=== PATIENT | female | born 1960 | race Caucasian/White ===

== ENCOUNTER 2017-08-29 09:13 | Inpatient (IN) | payer OTHER ==
[2017-08-22 12:52] VITALS: BMI 20.7
--- NOTE | 2017-08-26 10:34 | HP ---
Admitting History and Physical - Primary Care Physician PCP: Brett Ontiveros - Admission Chief Complaint: right breast cancer History of Present Illness: Patient is a 56 yo female noted to have a right palpable mass in mammo and US () c/w 6.5 cm mass extending anteriorly into the lateral subareolar region. Right 12 and 9 retroareolar region core bxs were c/w poorly dif invasive ductal carcinoma. (12 oclock site ER weakly + and [place]- ,HER-2 3+, 9 oclock site ER+ [place]- ,HER-2 3+) MRI (02/2017 at [facility]) was c/w right extensive cancer at 12 and extending into the nipple and retroareolar area. Questionable right axillary LN was noted on MRI but PET/CT (03/04) showed no adenopathy. Patient underwent neoadjuvant chemo and finished July 16/2017. Repeat MRI done at [place] showed complete radiologic response. Patient is now presenting for mastectomy including removal of nipple/areolar complex with tissue cheese specialist placement. Patient is BRCA negative. History Source: Patient Limitations to Obtaining History: No Limitations - Past Medical History ...: No Psych: Yes: Depression - Past Surgical History Past Surgical History: Yes: None - Smoking History Smoking history: Never smoked Have you smoked in the past 12 months: No - Alcohol/Substance Use Hx Alcohol Use: (WINE OCCASIONALLY) Home Medications - Allergies Allergies/Adverse Reactions: Allergies Allergy/AdvReac Type Severity Reaction Status Date / Time No Known Allergies Allergy Verified 08/22/17 12:38 - Home Medications Home Medications: Ambulatory Orders Calcium Carbonate/Vitamin D3 [Calcium 600 + Vit D Tablet] 1 each PO DAILY Cholecalciferol (Vitamin D3) [Vitamin D3 -] 1,000 unit PO DAILY 08/22/17 Escitalopram Oxalate [Lexapro -] 15 mg PO DAILY 08/22/17 Loperamide HCl [Imodium -] 2 mg PO DAILY PRN 08/22/17 Family Disease History - Family Disease History Other Family History: maternal cousin-breast cancer at 47. maternal sec cousin- breast cancer Review of Systems - Review of Systems Psychiatric: reports: Anxiety Physical Examination Constitutional: Yes: Well Nourished, Calm ([place]) Breast(s): Yes: Other (Patient has B-cup breasts without any palpable masses or suspicious masses noted bilaterally.) Problem List - Problems (1) Breast cancer, right Code(s): C50.911 - MALIGNANT NEOPLASM OF UNSP SITE OF RIGHT FEMALE BREAST Qualifiers: Breast location: overlapping sites of breast Patient sex: female Assessment/Plan right mastectomy with snbx, poss andx, lymphoscintogram and tissue cheese specialist reconstruction
[2017-08-29] MEDS ORDERED: ROCURONIUM BROMIDE 50 MG/5 ML VIAL ONE (10:38)
[2017-08-29] MEDS ORDERED: ceFAZolin SODIUM 1 GM VIAL ONE (10:50)
[2017-08-29] MEDS ORDERED: LIDOCAINE HCL 2% JELLY (5 ML/TUBE) ONE (10:50)
[2017-08-29] MEDS ORDERED: ONDANSETRON 4 MG/2 ML VIAL ONE ×2 (10:50→14:24)
[2017-08-29] MEDS ORDERED: DEXAMETHASONE SOD PHOSPHATE 4 MG/1 ML VIAL ONE (10:50)
[2017-08-29] MEDS ORDERED: ePHEDrine SULFATE 50 MG/1 ML AMPULE ONE (10:59)
[2017-08-29] MEDS ORDERED: PROPOFOL 20 ML ONE ×2 (11:25→12:24)
[2017-08-29] MEDS ORDERED: ACETAMINOPHEN 325 MG TABLET (FP) PO PRN (12:45)
[2017-08-29] MEDS ORDERED: ZOLPIDEM TARTRATE 5 MG TABLET PO PRN (12:45)
[2017-08-29] MEDS ORDERED: NEOSTIGMINE METHYLSULFATE 0.5 MG/ML - 10 ML MDV ONE (13:18)
[2017-08-29] MEDS ORDERED: ACETAMINOPHEN 325 MG TABLET (FP) ONE (14:19)
[2017-08-29] MEDS: ACETAMINOPHEN 325 MG TABLET (FP) PO SCH ×2 (14:22→20:33)
[2017-08-29] MEDS: diazePAM 2 MG TABLET PO SCH ×2 (14:22→23:39)
[2017-08-29] MEDS: ONDANSETRON 4 MG/2 ML VIAL IVPUSH PRN (14:28)
[2017-08-29] MEDS ORDERED: oxyCODONE HCL 5 MG TABLET ONE (15:02)
[2017-08-29] MEDS ORDERED: traMADol HCL 50 MG TABLET ONE (15:03)
[2017-08-29] MEDS: traMADol HCL 50 MG TABLET PO PRN (15:09)
[2017-08-29] MEDS: oxyCODONE HCL 5 MG TABLET PO PRN ×2 (15:09→23:39)
[2017-08-29] MEDS: CEFAZOLIN 1 GM/D5W 1 GRAM/50 ML BAG IVPB SCH ×2 (16:18→20:30)
[2017-08-30] MEDS: traMADol HCL 50 MG TABLET PO PRN (01:10)
[2017-08-30] MEDS: CEFAZOLIN 1 GM/D5W 1 GRAM/50 ML BAG IVPB SCH ×4 (02:42→21:10)
[2017-08-30] MEDS: ACETAMINOPHEN 325 MG TABLET (FP) PO SCH ×5 (02:42→21:11)
[2017-08-30] MEDS: oxyCODONE HCL 5 MG TABLET PO PRN ×2 (02:46→07:07)
[2017-08-30] MEDS: diazePAM 2 MG TABLET PO SCH ×4 (07:08→23:03)
[2017-08-30] MEDS: DEXTROSE 5%-0.45% SALINE 1,000 ML IV SCH ×2 (08:24→14:31)
--- NOTE | 2017-08-30 08:46 | PN ---
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 right breast cancer History of Present Illness: patient is in bed didn't eat yet was slightly nauseous but better now, pain managed with po pain medication - Current Medication List Current Medications: Active Medications Acetaminophen (Tylenol -) 650 mg PO Q4H PRN PRN Reason: FEVER Acetaminophen (Tylenol -) 650 mg PO Q6H EVIN Stop: 09/01/17 14:59 Last Admin: 08/30/17 08:24 Dose: Not Given Diazepam (Valium -) 2 mg PO Q8H EVIN Last Admin: 08/30/17 08:24 Dose: Not Given Escitalopram Oxalate (Lexapro -) 15 mg PO DAILY [facility] Fentanyl (Sublimaze Injection -) 50 mcg IVPUSH [id number] PRN PRN Reason: PAIN Last Admin: 08/29/17 15:05 Dose: 25 mcg Heparin Sodium (Porcine) (Heparin -) 5,000 unit SQ BID@0800,2000 [facility] Cefazolin Sodium (Ancef 1 Gm Premixed Ivpb -) 1 gram in 50 mls @ 100 mls/hr IVPB Q6H-IV EVIN Stop: 09/05/17 14:59 Last Admin: 08/30/17 02:42 Dose: 100 mls/hr Dextrose/Sodium Chloride (D5-1/2ns -) 1,000 mls @ 100 mls/hr IV ASDIR EVIN Last Admin: 08/30/17 08:24 Dose: 100 mls/hr Ondansetron HCl (Zofran Injection) 4 mg IVPUSH Q6H PRN PRN Reason: NAUSEA AND/OR VOMITING Last Admin: 08/29/17 14:28 Dose: 4 mg Oxycodone HCl (Roxicodone -) 5 mg PO Q3H PRN PRN Reason: PAIN LEVEL 1-5 Last Admin: 08/29/17 23:39 Dose: 5 mg Oxycodone HCl (Roxicodone -) 10 mg PO Q3H PRN PRN Reason: PAIN LEVEL 6-10 Last Admin: 08/30/17 07:07 Dose: 10 mg Tramadol HCl (Ultram -) 50 mg PO Q6H PRN PRN Reason: PAIN Last Admin: 08/30/17 01:10 Dose: 50 mg Zolpidem Tartrate (Ambien -) 5 mg PO HS PRN PRN Reason: Insomnia - Objective Vital Signs: Vital Signs Temperature 98.6 F 08/30/17 04:00 Pulse Rate 86 08/30/17 04:00 Respiratory Rate 18 08/30/17 04:00 Blood Pressure 116/64 08/30/17 04:00 O2 Sat by Pulse Oximetry (%) 97 08/29/17 20:00 Constitutional: Yes: No Distress Breast(s): Yes: Other (Right flap viable minimal echymosis incision intact no drainage or signs of infection) Problem List - Problems (1) Breast cancer, right Code(s): C50.911 - MALIGNANT NEOPLASM OF UNSP SITE OF RIGHT FEMALE BREAST Qualifiers: Breast location: overlapping sites of breast Patient sex: female Assessment/Plan Continue oral pain meds Iv antibiotics OOB with assistance zofran prn nausea plan for discharge tomorrow
[2017-08-30 08:49] LABS: MCHC 34.2 g/dl (32.0-36.0); MEAN CELL VOLUME 96.7 fl (80-96); MEAN PLT VOLUME 8.9 fl (7.5-11.1); PLATELET COUNT 214 K/MM3 (134-434); RDW 12.5 % (11.6-15.6); WHITE BLOOD COUNT 7.2 K/mm3 (4.0-10.8)
[2017-08-30] MEDS: ESCITALOPRAM OXALATE 10 MG TABLET (FP) PO SCH (09:41)
[2017-08-30] MEDS: HEPARIN NA (PORCINE) 5,000 UNITS/ML 1ML VIAL SQ SCH ×3 (09:49→19:56)
[2017-08-30] MEDS ORDERED: ESCITALOPRAM OXALATE PO SCH (10:00)
[2017-08-30] MEDS: ONDANSETRON 4 MG/2 ML VIAL IVPUSH PRN (10:19)
--- NOTE | 2017-08-30 14:34 | PN ---
Progress Note (short form) - Note Progress Note: 56F POD1 s/p right breast mastectomy with reconstruction under GA-ETT with PECS 1 and 2 blocks for post operative pain control. Pt states that pain is well controlled, reports some improving nausea. No anesthetic complications. Will add pepcid bid.
--- NOTE | 2017-08-30 14:54 | DS ---
Physical Examination Vital Signs: Vital Signs Temperature 98 F 08/30/17 12:00 Pulse Rate 66 08/30/17 12:00 Respiratory Rate 18 08/30/17 12:00 Blood Pressure 122/70 08/30/17 12:00 O2 Sat by Pulse Oximetry (%) 97 08/30/17 09:00 Constitutional: Yes: No Distress Breast(s): Yes: Other (Right flap vaiable incision intact no signs of infection meche drain functioning) Labs: CBC, BMP 08/30/17 07:00 Discharge Summary Reason For Visit: RIGHT BREAST CANCER Condition: Good - Instructions Diet, Activity, Other Instructions: Post Operative Instructions - [facility] We hope your recovery will be uneventful. For those of you who have been given general anesthesia, there is a possibility you might have some lightheadedness and possibly nausea. It is important that each patient, especially those who have had general anesthesia, follow these instructions, please: 1. Do NOT operate a motor vehicle for 24 hours. 2. Do NOT drink any alcoholic beverages for 24 hours. 3. Do NOT take any sedatives, narcotics, or tranquilizers for 24 hours unless specifically ordered by your surgeon. 4. Do NOT undertake any strenuous exercise or outside activity for 24 hours unless specifically permitted by your surgeon. 5. Eat light foods that are easy to digest. If you have any problems with nausea and vomiting, lie down and rest. If it continues, call your surgeon. 6. Call your surgeon AT ONCE if you have problems with: a. Bleeding b. Urinating c. Excessive pain or drainage d. Numbness If any problems occur, call your physician first. If you cannot reach him/her, call the Ambulatory Surgery Unit at [phone], or the Emergency Room at [phone]. Follow up with Drs. Flowers / Braxton in 7 days. Medication: Vicodin E-S OR Percocet 1-2 tablets every 4-6 hrs as needed for 5-7 days. Wound Care: Keep wound dry and clean for 48 hours. You may remove the dressing after 48 hours and may shower. Keep steri-strips in place until follow-up appointment No heavy lifting or strenuous activities.Post Operative Instructions - [facility] We hope your recovery will be uneventful. For those of you who have been given general anesthesia, there is a possibility you might have some lightheadedness and possibly nausea. It is important that each patient, especially those who have had general anesthesia, follow these instructions, please: 1. Do NOT operate a motor vehicle for 24 hours. 2. Do NOT drink any alcoholic beverages for 24 hours. 3. Do NOT take any sedatives, narcotics, or tranquilizers for 24 hours unless specifically ordered by your surgeon. 4. Do NOT undertake any strenuous exercise or outside activity for 24 hours unless specifically permitted by your surgeon. 5. Eat light foods that are easy to digest. If you have any problems with nausea and vomiting, lie down and rest. If it continues, call your surgeon. 6. Call your surgeon AT ONCE if you have problems with: a. Bleeding b. Urinating c. Excessive pain or drainage d. Numbness If any problems occur, call your physician first. If you cannot reach him/her, call the Ambulatory Surgery Unit at [phone], or the Emergency Room at [phone]. Follow up with Drs. Flowers / Braxton in 7 days. Medication: Vicodin E-S OR Percocet 1-2 tablets every 4-6 hrs as needed for 5-7 days. Wound Care: Keep wound dry and clean for 48 hours. You may remove the dressing after 48 hours and may shower. Keep steri-strips in place until follow-up appointment No heavy lifting or strenuous activities. NO shower, empty and record MECHE output 2 times daily Referrals: Lester Flowers MD [Staff Physician] - Garrett Barajas MD [Staff Physician] - Disposition: HOME - Home Medications Comprehensive Discharge Medication List: Ambulatory Orders Calcium Carbonate/Vitamin D3 [Calcium 600 + Vit D Tablet] 1 each PO DAILY Cholecalciferol (Vitamin D3) [Vitamin D3 -] 1,000 unit PO DAILY 08/22/17 Escitalopram Oxalate [Lexapro -] 15 mg PO DAILY 08/22/17 Cefadroxil 500 mg PO BID #20 capsule 08/30/17 Tramadol HCl [Ultram] 50 mg PO TID PRN #14 tablet MDD 3 08/30/17
--- NOTE | 2017-08-30 17:55 | OP ---
DATE OF OPERATION: 08/29/2017 PREOPERATIVE DIAGNOSIS: Left breast multifocal breast cancer status post neoadjuvant chemotherapy. POSTOPERATIVE DIAGNOSIS: Left breast multifocal breast cancer status post neoadjuvant chemotherapy. PROCEDURE: Right breast total mastectomy with right axillary sentinel lymph node biopsy and afloat cryptologic manager reconstruction with Alloderm. ANESTHESIA: General endotracheal anesthesia. PRIMARY SURGEON: Abdulaziz Spaulding M.D. SUEDING MACHINE TENDER: Fazal Varghese PRIMARY SURGEON: For the afloat cryptologic manager reconstruction with Alloderm is Abdulaziz Barajas M.D. with his first crusher, Tiffanie Espinoza COMPLICATIONS: None. Briefly, the patient is a 56-year-old post menopausal nulliparous white female of [place] descent. She has a family history with her maternal cousin who had breast cancer at age 47 and a maternal second cousin had breast cancer at age 39. The patient felt a mass in the upper aspect of the right breast and eventually had a mammography ultrasound in January of 2017 showing a large central right breast mass measuring about 6.6 cm on ultrasound. There was a density in the right 12 and 9 o'clock positions, and both of these were biopsied under ultrasound guidance showing poorly differentiated invasive duct cancer which was ER positive, MS negative, and HER2 3+. The patient had an MRI showing extensive cancer in the right breast with the largest focus measuring about 3.6 cm, and there was involvement of the nipple of retroareolar region. There was an irregular lymph node seen in the right axillary region. She was seen down at [facility] and they performed a PET CT scan which was negative, and felt her nodes were not significant. She underwent neoadjuvant chemotherapy with AC-THP and finished that on July 16, 2017. On exam after neoadjuvant chemotherapy, she had a complete clinical response. An MRI after chemotherapy also showed a complete radiologic response. She was advised on undergoing a total mastectomy given the extent of the initial cancer which was multifocal. A sentinel lymph node biopsy is recommended. She is brought in for the procedure on August 29, 2017, and underwent the lymphoscintigraphy at [facility] and was brought to the [place] holding area. In the holding area, site verification was made, and informed consent was obtained. She was marked preoperatively by the plastic surgeon. The patient was brought into the operating room and laid on the OR table in the supine position. Venodynes are placed on the lower extremities prior to reduction. She received a gram of Ancef prior to Ancef. Then 3 mL of Lymphazurin blue are injected intradermally around the nipple areolar complex of the right breast. Massage was instituted. Again, she had general endotracheal anesthesia. Both breasts were sterilely prepped and draped in the usual fashion. The sentinel lymph node biopsy was first performed in the right axillary region. An incision was made just below the hair bearing area of the right axilla and dissection was undertaken, and blue lymphatics were seen coursing to 2 blue hot lymph nodes. The first sentinel node had a 10-second gamma count of 1696 and was blue. The second sentinel lymph node had a 10-second gamma count of 16,803 and was also blue. There were no other blue or hot nodes found, and background count after removal of these 2 nodes was 191. Both nodes were sent for frozen section and came back negative, though there was some fibrosis in the nodes consistent with chemotherapy effect. At this point the mastectomy is performed using a skin-sparing technique, removing the entire nipple areolar complex through an elliptical incision. Skin flaps were raised superiorly to the level of the clavicle, medially to the level of the sternum, laterally to the level of the latissimus, and inferiorly to the level of the inframammary fold. The breast was taken out off pectoralis major muscle from medial to lateral, completely removed intact. It was oriented with a long lateral, short superior suture and weighed to allow for appropriate cosmetic result. Specimen radiographs show removal of the 2 clips in question. The separate anterior margin was taken around the 12 o'clock region underneath the skin flap and sent separately as anterior margin with suture margin on biopsy cavity side. Hemostasis was achieved, and the wound was copiously irrigated with warm sterile saline. At this point, Dr. Barajas became the primary surgeon, and he performed an afloat cryptologic manager reconstruction in the subpectoral location using Alloderm. Two Lew drains were placed around the afloat cryptologic manager, brought through separate stab incisions on the lateral skin flaps and secured in place using 3-0 nylon suture. All wounds will be closed separately by plastic surgery. The patient did have a prepectoral block preoperatively for postoperative pain control. She will be extubated and recovered in the post-anesthesia care and will be admitted postoperatively for pain and wound management. All sponge, needle counts were correct at the end of the case and estimated blood loss was about 50 mL. The patient was hemodynamically stable throughout. ABDULAZIZ SPAULDING M.D. [id number]
[2017-08-30] MEDS: FAMOTIDINE 20 MG/50 ML IVPB 20 MG/50 ML MG IVPB SCH (21:10)
[2017-08-30] MEDS ORDERED: FAMOTIDINE IV 20 MG/12 ML VIAL IVPUSH SCH (22:00)
[2017-08-31] MEDS: ACETAMINOPHEN 325 MG TABLET (FP) PO SCH ×4 (03:22→14:21)
[2017-08-31] MEDS: CEFAZOLIN 1 GM/D5W 1 GRAM/50 ML BAG IVPB SCH ×2 (03:22→08:54)
[2017-08-31] MEDS: oxyCODONE HCL 5 MG TABLET PO PRN ×2 (07:10→14:20)
--- NOTE | 2017-08-31 08:13 | OP ---
DATE OF OPERATION: 08/29/2017 SURGEON: Abdulaziz Barajas MD OFFICE ADMIN SURGEON: SIMI Espinoza PREOPERATIVE DIAGNOSES: 1. Right acquired chest wall deformity status post right mastectomy. 2. Asymmetry of reconstructed chest wall. OPERATIVE PROCEDURE: Immediate right breast reconstruction with immediate insertion of tissue ground crew linesman and Alloderm soft tissue reconstruction. POSTOPERATIVE DIAGNOSIS: 1. Right acquired chest wall deformity status post right mastectomy. 2. Asymmetry of reconstructed chest wall. OPERATIVE INDICATION: The patient is a young woman who was brought to the operating room by Dr. Abdulaziz Flowers for right breast mastectomy. ANESTHESIA: General. CONSENT: The risks and benefits of surgical versus nonsurgical alternatives as well as the material complications of the procedure were described in great detail to the patient preoperatively on multiple occasions. She agreed to the planned procedure. OPERATIVE PROCEDURE IN DETAIL: The patient was taken to the operating room. After induction of general anesthesia in the supine position, both arms were extended and padded. Venodyne boots were placed. The entire chest wall, abdomen and flanks were prepped with ChloraPrep solution over their entire extent, and sterile drapes were placed in the usual fashion. Time out procedure was performed. At this point, the mastectomy scars were encountered and injected with 1% local lidocaine anesthesia with 1:100,000 epinephrine. The flanks and abdomen were also injected with 1% local lidocaine anesthesia and topical anesthesia was achieved for harvest of reconstructive tissue. At this point, attention was turned to the breasts. An incision was made down through the skin into the subcutaneous tissue, and a space for room for the reconstructive tissue was carried out over the right breast, and then symmetrically on the left breast. The capsule was softened, and attention was turned to the abdomen and flanks. The patient underwent excision of the right breast tissue. She underwent reconstruction with an AeroForm medium 600-mL air ground crew linesman and Alloderm of contour perforated large size. This is a unilateral reconstruction on the right. An incision was made using optical magnification of 1.5 power down through the skin into the subcutaneous tissue, through the subcutaneous tissue into the deep layers of the space. At this point, tissue was harvested for reconstruction, and then transferred to the back table. This tissue was then cleansed, prepared and readied for reconstruction. It was then transferred to the right breast and left breast independently. In the right breast it was positioned superiorly, medially and especially inferiorly, and in the left breast superiorly, medially and centrally in order to correct the significant deformity. When this was carried out, good shape and contour was seen in the sitting position. The patient tolerated this nicely. The wounds were closed with interrupted sutures, and the patient was dressed with Steri-Strips, Mastisol and a compressive dressing. The patient tolerated the procedure well. She was awakened and transferred to the recovery room in satisfactory condition. ABDULAZIZ BARAJAS M.D. FARHAT/[id number]
[2017-08-31] MEDS: diazePAM 2 MG TABLET PO SCH (08:52)
[2017-08-31] MEDS: HEPARIN NA (PORCINE) 5,000 UNITS/ML 1ML VIAL SQ SCH ×2 (08:53→09:00)
[2017-08-31] MEDS: FAMOTIDINE 20 MG/50 ML IVPB 20 MG/50 ML MG IVPB SCH (10:00)
[2017-08-31] MEDS: ESCITALOPRAM OXALATE 10 MG TABLET (FP) PO SCH (10:12)
--- NOTE | 2017-08-31 10:25 | PN ---
Progress Note, Physician Chief Complaint: Right multifocal breast cancer s/p neoadjuvant CTX History of Present Illness: The patient was diagnosed with a significant right multifocal breast cancer around January 2017 which was HER2+ and she underwent neoadjuvant AC-THP chemotherapy with a complete radiologic and clinical response. She then presented for a right breast total mastectomy with SLN biopsy and order schedule clerk reconstruction with alloderm on 08/29/17. - Current Medication List Current Medications: Active Medications Acetaminophen (Tylenol -) 650 mg PO Q4H PRN PRN Reason: FEVER Acetaminophen (Tylenol -) 650 mg PO Q6H [facility] Stop: 09/01/17 14:59 Last Admin: 08/31/17 08:53 Dose: 650 mg Diazepam (Valium -) 2 mg PO Q8H [facility] Last Admin: 08/31/17 08:52 Dose: Not Given Escitalopram Oxalate (Lexapro -) 15 mg PO DAILY [facility] Last Admin: 08/31/17 10:12 Dose: 15 mg Fentanyl (Sublimaze Injection -) 50 mcg IVPUSH [id number] PRN PRN Reason: PAIN Last Admin: 08/29/17 15:05 Dose: 25 mcg Heparin Sodium (Porcine) (Heparin -) 5,000 unit SQ BID@0800,2000 [facility] Last Admin: 08/31/17 09:00 Dose: Not Given Cefazolin Sodium (Ancef 1 Gm Premixed Ivpb -) 1 gram in 50 mls @ 100 mls/hr IVPB Q6H-IV [facility] Stop: 09/05/17 14:59 Last Admin: 08/31/17 08:54 Dose: 100 mls/hr Dextrose/Sodium Chloride (D5-1/2ns -) 1,000 mls @ 100 mls/hr IV ASDIR [facility] Last Admin: 08/30/17 14:31 Dose: Not Given Famotidine/Sodium Chloride (Pepcid 20 Mg Premixed Ivpb -) 20 mg in 50 mls @ 100 mls/hr IVPB BID [facility] Last Admin: 08/30/17 21:10 Dose: 100 mls/hr Ondansetron HCl (Zofran Injection) 4 mg IVPUSH Q6H PRN PRN Reason: NAUSEA AND/OR VOMITING Last Admin: 08/30/17 10:19 Dose: 4 mg Oxycodone HCl (Roxicodone -) 5 mg PO Q3H PRN PRN Reason: PAIN LEVEL 1-5 Last Admin: 08/31/17 07:10 Dose: 5 mg Oxycodone HCl (Roxicodone -) 10 mg PO Q3H PRN PRN Reason: PAIN LEVEL 6-10 Last Admin: 08/30/17 07:07 Dose: 10 mg Tramadol HCl (Ultram -) 50 mg PO Q6H PRN PRN Reason: PAIN Last Admin: 08/30/17 01:10 Dose: 50 mg Zolpidem Tartrate (Ambien -) 5 mg PO HS PRN PRN Reason: Insomnia - Objective Vital Signs: Vital Signs Temperature 98.0 F 08/31/17 06:00 Pulse Rate 84 08/31/17 06:00 Respiratory Rate 18 08/31/17 08:04 Blood Pressure 97/62 08/31/17 06:00 O2 Sat by Pulse Oximetry (%) 98 08/31/17 08:04 Constitutional: Yes: Well Nourished, No Distress Eyes: Yes: WNL HENT: Yes: Atraumatic, Normocephalic Neck: Yes: WNL Cardiovascular: Yes: Regular Rate and Rhythm Respiratory: Yes: Regular, CTA Bilaterally Gastrointestinal: Yes: Normal Bowel Sounds, Soft ...Rectal Exam: Yes: Deferred Genitourinary: Yes: WNL Breast(s): Yes: Other (Right mastectomy wound clean, dry, and intact. Drains functioning well.) Musculoskeletal: Yes: WNL Extremities: Yes: WNL Integumentary: Yes: WNL Wound/Incision: Yes: Clean/Dry, Well Approximated Neurological: Yes: Alert, Oriented ...Motor Strength: WNL Psychiatric: Yes: Other (Depression) Labs: CBC, BMP 08/30/17 07:00 Problem List - Problems (1) Breast cancer, right Assessment/Plan: The patient is doing well POD#2 with good pain control. Her wounds are clean, dry, and intact. Drains functioning well. Good pain control on percocet for pain. Dressing changed at bedside today. Stable for discharge today. HOme on percocet for pain and cefadroxil antibiotics. Follow up with Drs. Barajas and Kristie in 1 week. REBECCA drain teaching prior to discharge. NO heavy lifting or activity, No bath or shower until drains removed. Keep compressive bra on day/ night. Record drain outputs daily. Code(s): C50.911 - MALIGNANT NEOPLASM OF UNSP SITE OF RIGHT FEMALE BREAST Qualifiers: Breast location: overlapping sites of breast Estrogen receptor status: positive Patient sex: female Qualified Code(s): C50.811 - Malignant neoplasm of overlapping sites of right female breast; Z17.0 - Estrogen receptor positive status [ER+]; Z17.0 - Estrogen receptor positive status [ER+]
--- NOTE | 2017-08-31 10:40 | DS ---
Physical Examination Vital Signs: Vital Signs Temperature 98.0 F 08/31/17 06:00 Pulse Rate 84 08/31/17 06:00 Respiratory Rate 18 08/31/17 08:04 Blood Pressure 97/62 08/31/17 06:00 O2 Sat by Pulse Oximetry (%) 98 08/31/17 08:04 Constitutional: Yes: Well Nourished, No Distress, Calm Eyes: Yes: WNL HENT: Yes: Atraumatic, Normocephalic Neck: Yes: WNL Cardiovascular: Yes: Regular Rate and Rhythm Respiratory: Yes: Regular, CTA Bilaterally Gastrointestinal: Yes: Normal Bowel Sounds, Soft ...Rectal Exam: Yes: Deferred Renal/: Yes: WNL Breast(s): Yes: Other (Wounds clean, dry, and intact. Drains functioning well.) Musculoskeletal: Yes: WNL Extremities: Yes: WNL Integumentary: Yes: WNL Wound/Incision: Yes: Clean/Dry, Well Approximated Neurological: Yes: Alert, Oriented ...Motor Strength: WNL Psychiatric: Yes: Other (depressed) Labs: CBC, BMP 08/30/17 07:00 Discharge Summary Reason For Visit: RIGHT BREAST CANCER Right breast cancer s/p neoadjuvant chemotherapy and total mastectomy and sentinel lymph node biopsy with geologist petroleum reconstruction with alloderm. Procedures: Principal: Right breast total mastectomy with sentinel lymph node biopsy and geologist petroleum reconstruction with alloderm Hospital Course: The patient did well and had good pain control POD#2 s/p right breast total mastectomy with SLN biopsy and geologist petroleum reconstruction with alloderm with her wounds clean, dry, and intact. She was stable for discharge POD#2 and will be sent home on oral cefadroxil and percocet for pain. She is to follow up with drs. Barajas and Kristie in 1 week. Condition: Good - Instructions Diet, Activity, Other Instructions: Post Operative Instructions - [facility] We hope your recovery will be uneventful. For those of you who have been given general anesthesia, there is a possibility you might have some lightheadedness and possibly nausea. It is important that each patient, especially those who have had general anesthesia, follow these instructions, please: 1. Do NOT operate a motor vehicle for 24 hours. 2. Do NOT drink any alcoholic beverages for 24 hours. 3. Do NOT take any sedatives, narcotics, or tranquilizers for 24 hours unless specifically ordered by your surgeon. 4. Do NOT undertake any strenuous exercise or outside activity for 24 hours unless specifically permitted by your surgeon. 5. Eat light foods that are easy to digest. If you have any problems with nausea and vomiting, lie down and rest. If it continues, call your surgeon. 6. Call your surgeon AT ONCE if you have problems with: a. Bleeding b. Urinating c. Excessive pain or drainage d. Numbness If any problems occur, call your physician first. If you cannot reach him/her, call the Ambulatory Surgery Unit at [phone], or the Emergency Room at . Follow up with Drs. Flowers / Braxton in 7 days. Medication: Vicodin E-S OR Percocet 1-2 tablets every 4-6 hrs as needed for 5-7 days. Wound Care: Keep wound dry and clean for 48 hours. You may remove the dressing after 48 hours and may shower. Keep steri-strips in place until follow-up appointment No heavy lifting or strenuous activities.Post Operative Instructions - [facility] We hope your recovery will be uneventful. For those of you who have been given general anesthesia, there is a possibility you might have some lightheadedness and possibly nausea. It is important that each patient, especially those who have had general anesthesia, follow these instructions, please: 1. Do NOT operate a motor vehicle for 24 hours. 2. Do NOT drink any alcoholic beverages for 24 hours. 3. Do NOT take any sedatives, narcotics, or tranquilizers for 24 hours unless specifically ordered by your surgeon. 4. Do NOT undertake any strenuous exercise or outside activity for 24 hours unless specifically permitted by your surgeon. 5. Eat light foods that are easy to digest. If you have any problems with nausea and vomiting, lie down and rest. If it continues, call your surgeon. 6. Call your surgeon AT ONCE if you have problems with: a. Bleeding b. Urinating c. Excessive pain or drainage d. Numbness If any problems occur, call your physician first. If you cannot reach him/her, call the Ambulatory Surgery Unit at [phone], or the Emergency Room at [phone]. Follow up with Drs. Flowers / Braxton in 7 days. Medication: Vicodin E-S OR Percocet 1-2 tablets every 4-6 hrs as needed for 5-7 days. Wound Care: Keep wound dry and clean for 48 hours. You may remove the dressing after 48 hours and may shower. Keep steri-strips in place until follow-up appointment No heavy lifting or strenuous activities. NO shower, empty and record REBECCA output 2 times daily Referrals: Lester Flowers MD [Staff Physician] - Garrett Barajas MD [Staff Physician] - Disposition: HOME - Home Medications Comprehensive Discharge Medication List: Ambulatory Orders Calcium Carbonate/Vitamin D3 [Calcium 600 + Vit D Tablet] 1 each PO DAILY Cholecalciferol (Vitamin D3) [Vitamin D3 -] 1,000 unit PO DAILY 08/22/17 Escitalopram Oxalate [Lexapro -] 15 mg PO DAILY 08/22/17 Cefadroxil 500 mg PO BID #20 capsule 08/30/17 Tramadol HCl [Ultram] 50 mg PO TID PRN #14 tablet MDD 3 08/30/17
[2017-08-31 13:52] VITALS: BP 111/64; PULSE 96; TEMP 97.8
--- NOTE | 2017-09-04 10:12 | PATH ---
Surgical Pathology Report Patient Name: MELIZA JOSE Med. Rec. #: [id number] /Age/Gender: 1960 (Age: 56) / F Account: [id number] Location: [facility] MED-SURG Taken: 08/29/2017 Received: 08/29/2017 Reported: 09/04/2017 Physicians: Lester Flowers M.D. Specimen(s) Received A: RIGHT AXILLARY SENTINEL NODE B: RIGHT AXILLARY SENTINEL NODE C: RIGHT BREAST, MASTECTOMY D: RIGHT BREAST ANTERIOR MARGIN Clinical History None Provided Intraoperative Consult Diagnosis A. Right axillary sentinel node #1, frozen section: Lymph node showing area of dense fibrosis, suggestive of treatment effect. Cannot exclude focal residual metastatic carcinoma. Defer to permanent sections and immunohistochemistry. B. Right axillary sentinel node #2, frozen section: Lymph node showing focal area of dense fibrosis, suggestive of treatment effect. Cannot exclude focal residual metastatic carcinoma. Defer to permanent sections and immunohistochemistry. Emre Muir M.D., 08/29/17 Final Diagnosis A. Axilla, right, sentinel node #1, biopsy (FS): ONE BENIGN LYMPH NODE WITH HISTIOCYTIC PROLIFERATION SUGGESTIVE OF TREATMENT EFFECT ON H&E AND CYTOKERATIN AE1/3 IMMUNOHISOCHMEICAL STAIN (0/1). B. Axilla, right, sentinel node #2, biopsy (FS): ONE BENIGN LYMPH NODE WITH HISTIOCYTIC PROLIFERATION SUGGESTIVE OF TREATMENT EFFECT ON H&E AND CYTOKERATIN AE1/3 IMMUNOHISOCHMEICAL STAIN (0/1). C. 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 hIstiocytic and giant cell proliferation in a background of fibrosis consistent with prior tumor bed within the UPPER INNER QUADRANT (UIQ). No viable/residual INVASIVE carcinoma identified, consistent with complete pathologiC response (pCR). MARGINS OF RESECTION ARE NEGATIVE FOR CARCINOMA (WIDELY FREE). SEE PART D FOR ADDITIONAL ANTERIOR MARGIN. Remainder OF breast tissue shows fibrocystic changes inCLUDING STROMAL fibrosis, microcysts and usual ductal hyperplasia. Pathologic Stage (pTNM): ypTis(DCIS) ypN0(sn) pMx D. Breast, right, anterior margin, excision: BENIGN breast tissue WITH focal histiocytic aggregateS. Comment: Immunohistochemical stains performed and interpreted at [facility] for AE/13 is utilized to evaluate this case. Electronically Signed Desiree Almazan M.D. Gross Description A. Received fresh labeled "right axillary sentinel node #1," is a 1.3 x 1.0 x 0.4 cm lymph node with attached fatty tissue. The lymph node is bisected and a frozen section is performed on the lymph node. The frozen section residue is entirely submitted in one cassette. B. Received fresh labeled "right axillary sentinel node #2," is a 1.0 x 0.5 x 0.4 cm lymph node with attached fatty tissue. The lymph node is bisected and a frozen section is performed on the lymph node. The frozen section residue is entirely submitted in one cassette. C. Received in formalin, labeled "right mastectomy," is a 281 gram, 16.0 x 14.0 x 3.3 cm. right mastectomy specimen with a short suture marking the superior aspect and a long suture marking the lateral aspect of the specimen, per the surgeon. The anterior surface displays a 3.8 x 2.9 cm aparicio, elliptical portion of skin with a 1.0 cm in diameter nipple. The deep margin is inked black and the anterior soft tissue margin is inked blue. The specimen is serially sectioned from lateral to medial. Sectioning reveals a 3.5 x 3.0 x 1.4 cm focus of firm fibrous tissue in the upper inner quadrant (UIQ). There is a romeo metallic biopsy clip identified within the firm focus. The remaining breast parenchyma displays abundant dense, white, focally firm fibrous tissue. No definite residual mass is identified. Blow Down Helper sections are submitted in 21 cassettes as follows: 1-serially sectioned nipple; 2-subareolar shave; 3-UIQ section from biopsy clip with anterior soft tissue margin; 8-6-xbwrppdgef fibrous tissue surrounding biopsy clip; 4-54-hwqzacbduf UIQ tissue; 12-13-lower inner quadrant; 90-39-gdleuepamedc tissue; 16-17-upper outer quadrant; 18-19-lower outer quadrant; 20-skin and anterior soft tissue margin; 21-deep margin. Time to formalin fixation: 32 minutes Total formalin fixation time: Approximately 29 hours. D. Received in formalin labeled "right breast anterior margin," is a 3.8 x 2.7 x 1.0 cm irregular portion of fibroadipose tissue with a suture marking the biopsy cavity side, per the surgeon. The new margin is inked blue and the specimen is serially sectioned. The specimen is entirely and sequentially submitted in 5 cassettes. 08/29/201708/29/2017
== END 2017-08-31 14:43 | disposition home or self-care (01) | DRG 581 ==
LOC: FM/S 09:13
PROVIDERS: ADMIT Surgery Surgical Oncology; ATTEND Surgery Surgical Oncology
PROC: 0HTT0ZZ Resection of Right Breast, Open Approach (ICD-10-PCS; principal; 2017-08-29 11:00)
PROC: 07B50ZX Excision of Right Axillary Lymphatic, Open Approach, Diagnostic (ICD-10-PCS; 2017-08-29 11:00)
PROC: 0HRT0JZ Replacement of Right Breast with Synthetic Substitute, Open Approach (ICD-10-PCS; 2017-08-29 11:00)
PROC: 0HHT0NZ Insertion of Tissue Expander into Right Breast, Open Approach (ICD-10-PCS; 2017-08-29 11:00)
DX: C50.911 Malignant neoplasm of unspecified site of right female breast (principal); Z17.0 Estrogen receptor positive status [ER+]; M95.4 Acquired deformity of chest and rib; F32.9 Major depressive disorder, single episode, unspecified
CPT/HCPCS: 36415; 78195-TC; 85027; 88307-TC; 88331-TC; 94010; 94760; A9541; J1644

== ENCOUNTER 2018-04-17 10:27 | Day surgery (SDC) | payer OTHER ==
[2018-04-16 13:08] VITALS: BMI 22.6
[2018-04-17] MEDS ORDERED: LIDOCAINE HCL/PF 2% SDV 5ML VIAL ONE (11:24)
[2018-04-17] MEDS ORDERED: MIDAZOLAM HCL 2 MG/2 ML SINGLE DOSE VIAL ONE ×2 (11:24)
[2018-04-17] MEDS ORDERED: PROPOFOL 20 ML ONE ×2 (11:24)
[2018-04-17] MEDS ORDERED: GENTAMICIN SO4 80 MG/2 ML VIAL ONE (12:12)
[2018-04-17] MEDS ORDERED: LIDOCAINE 1%/EPI 1:100000 (20 ML MULTI DOSE VIAL) ONE (12:13)
[2018-04-17] MEDS ORDERED: BUPIVACAINE HCL/PF 0.5% (5MG/ML) 10 ML VIAL ONE (12:13)
[2018-04-17] MEDS ORDERED: ceFAZolin SODIUM 1 GM VIAL ONE ×2 (12:13→12:59)
[2018-04-17] MEDS ORDERED: ACETAMINOPHEN INJECTION 100 ML IVPB ONE (12:21)
--- NOTE | 2018-04-17 12:35 | OP ---
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 Chest wall asymmetry. Mechanical complication of device Operation: Breast reconstruction with other technique right. Right breast implant removal. replacement. left breast reduction. removal of left chest mediport Implants: Iraj [place] Post-Operative Diagnosis: Same as Pre-op Surgeon: Garrett Barajas Anesthesiologist/CURATOR OF COLLECTIONS: Bill Jansen Anesthesia: General Estimated Blood Loss (mls): 25
[2018-04-17] MEDS ORDERED: ceFAZolin SODIUM 1 GM VIAL IVPB ONE ×2 (13:00→13:35)
[2018-04-17] MEDS ORDERED: BUPIVACAINE HCL/PF (5 MG/ML) 30 ML VIAL IJ ONE ×2 (13:08)
[2018-04-17] MEDS ORDERED: LIDOCAINE 1%/EPI 1:100000 (20 ML MULTI DOSE VIAL) IJ ONE ×2 (13:08)
[2018-04-17] MEDS ORDERED: GENTAMICIN SO4 80 MG/2 ML VIAL IVPB ONE (13:35)
[2018-04-17] MEDS ORDERED: BACITRACIN 50,000 UNITS VIAL NR ONE (13:35)
[2018-04-17] MEDS ORDERED: PROMETHAZINE HCL 25 MG/1 ML VIAL IVPUSH PRN (13:50)
[2018-04-17] MEDS ORDERED: ONDANSETRON 4 MG/2 ML VIAL IVPUSH PRN (13:50)
[2018-04-17] MEDS ORDERED: oxyCODONE HCL 5 MG TABLET PO PRN (13:50)
[2018-04-17] MEDS ORDERED: LACTATED RINGERS SOLUTION 1,000 ML IV SCH (14:00)
[2018-04-17] MEDS ORDERED: ONDANSETRON 4 MG/2 ML VIAL ONE (15:23)
[2018-04-17 15:38] VITALS: TEMP 98.2
[2018-04-17] MEDS ORDERED: oxyCODONE HCL 5 MG TABLET ONE (17:35)
[2018-04-17 19:46] VITALS: BP 114/67; PULSE 79
[2018-04-17] MEDS ORDERED: ACETAMINOPHEN 325 MG TABLET (FP) ONE (19:48)
[2018-04-17] MEDS ORDERED: ACETAMINOPHEN 325 MG TABLET (FP) PO ONE (20:15)
--- NOTE | 2018-04-19 08:19 | OP ---
DATE OF OPERATION: 04/17/2018 SURGEON: Abdulaziz Barajas MD PREOPERATIVE DIAGNOSES: 1. Bilateral acquired chest wall deformity status post mastectomy for breast cancer. 2. History of radiation therapy. 3. Personal history of breast carcinoma. 4. Asymmetry of reconstructed chest wall. POSTOPERATIVE DIAGNOSES: 1. Bilateral acquired chest wall deformity status post mastectomy for breast cancer. 2. History of radiation therapy. 3. Personal history of breast carcinoma. 4. Asymmetry of reconstructed chest wall. OPERATIVE PROCEDURE: 1. Right breast reconstruction utilizing other technique. 2. Right breast capsulectomy, removal and replacement of right breast implant. 3. Left breast reduction mammoplasty. OPERATIVE INDICATION: Patient is a young woman of 57 years old, who underwent right breast mastectomy with a prior history of breast cancer, and was brought to the operating room for device. She underwent chemotherapy and radiation therapy for breast cancer in the past recent months and now is ready for reconstruction and symmetry of both breasts. The risks and benefits of surgical versus nonsurgical alternatives as well as the material complications were described to the patient on multiple occasions preoperatively. She agreed to the planned procedure. OPERATIVE PROCEDURE IN DETAIL: Patient was taken to the operating room, and after induction of general anesthesia in supine position, both arms were extended and padded. Venodyne boots were placed. The entire chest wall, abdomen, and flanks were prepped with ChloraPrep solution over their entire extent. At this point, after placing sterile drapes in the usual fashion, attention was turned to the chest wall. After timeout, 1% local lidocaine anesthesia with 1:100,000 epinephrine was injected into the mastectomy scar on the right breast. The left breast markings for reduction mammoplasty which had been made in the standing position preoperatively and in the flank area for harvest of reconstructive tissue. At this point, an incision was made down through the skin to the subcutaneous tissue in the right breast. This was carried down to the underlying capsule, and then, the capsule was then opened, performing capsulotomy and the implant device was removed. This was sent for pathologic diagnosis with its capsule, and then, a capsulectomy was performed separately on the right breast itself, removing a block of tissue from the lateral portion of the capsule. Copious irrigation was placed and temporized. Patient was then turned, and an incision was made in the flank area down through the skin to subcutaneous tissue, into the deep tissue over the lateral oblique muscle for harvest of reconstructive tissue. This was carried down to the fascia over the muscle itself, and then, a block of tissue was removed from the right and left flanks. This tissue was cleansed, prepared, and transferred to the back table for usage, and then, the donor sites were closed with interrupted and running sutures in the usual fashion. Attention was then turned back to the markings on the left breast. A circumareolar and vertical reduction mammoplasty was previously marked and then incised using a number-10 scalpel. Tissue was then removed from the circumareola and a block of tissue removed for reduction mammoplasty in the central portion of the lower pole of the breast. This breast tissue was sent for analysis because of previous history of breast cancer. At this point, copious irrigation and hemostasis were obtained, and then, the pillars on both sides of the breasts were then sutured together using 2-0 Vicryl sutures on the deepest tissue over the pectoralis major muscle, 2-0 in a deep breast fashion, and then, 3-0 PDS in a deep dermal fashion with a running subcuticular V-Loc 3-0 suture. Good shape and contour were seen, and then, the implant was chosen for the patient. A Natrelle Inspira Soft Touch breast implant, style SSF 560-mL was placed into the right breast pocket. Good shape, contour, and symmetry were seen in the sitting position. The patient was then closed in multiple layers because of the previous radiation therapy, using 3-0 PDS suture on the deep tissue, 3-0 Biosyn in a dermal fashion, and a running suture with 4-0 Biosyn on the skin. Tissue was then transferred to the right breast from the back table, brought into the field, and then placed into the superior, medial, and central portions of the right breast to create symmetry from the mastectomy. All wound were then dressed with Dermabond, Steri-Strips, and a compressive dressing. All sites were closed with the same on both breasts. Good symmetry was seen at the end of the procedure. She tolerated the procedure well, was awakened, extubated, and transferred to the recovery room in satisfactory condition. ABDULAZIZ BARAJAS M.D. [id number]
--- NOTE | 2018-04-21 11:48 | PATH ---
Surgical Pathology Report Patient Name: MELIZA JOSE [facility]. Rec. #: [id number] /Age/Gender: 1960 (Age: 57) / F Account: [id number] Location: [facility] SURGICAL Taken: 04/17/2018 Received: 04/18/2018 Reported: 04/21/2018 Physicians: Garrett Barajas Specimen(s) Received A: RIGHT BREAST CAPSULE B: LEFT BREAST TISSUE C: MEDIPORT LEFT CHEST D: RIGHT BREAST IMPLANT Clinical History Breast cancer Final Diagnosis A. BREAST CAPSULE, RIGHT, EXCISION: DENSE FIBROUS TISSUE, SCANT FIBROADIPOSE TISSUE, AND SCANT SKELETAL MUSCLE WITH MILD CHRONIC INFLAMMATION AND FOCAL REACTIVE CHANGES CONSISTENT WITH BREAST CAPSULE. B. BREAST TISSUE, LEFT, EXCISION: BENIGN BREAST TISSUE. SKIN WITHOUT SIGNIFICANT PATHOLOGIC FINDINGS. C. MEDIPORT, CHEST, LEFT, REMOVAL: MEDICAL PORT. MACROSCOPIC DIAGNOSIS. D. BREAST IMPLANT, RIGHT, REMOVAL: BREAST IMPLANT. MACROSCOPIC DIAGNOSIS. Electronically Signed Desiree Almazan M.D. Gross Description A. Received in formalin labeled "right breast capsule," is a 1.8 x 1.8 x 0.5 cm aparicio, unoriented portion of fibrous tissue, consistent with a fibrous capsule. No discrete masses are identified. Thread Reeler sections are submitted in one cassette. B. Received in formalin labeled "left breast tissue," a 39 g, 5.5 x 4.5 x 3.2 cm unoriented portion of fibroadipose tissue with attached aparicio, unremarkable skin. There are additional unremarkable skin fragments received within the same container. Sectioning reveals foci of fibrous tissue. No discrete masses are identified. Thread Reeler sections are submitted in one cassette. C. Received fresh labeled "Mediport left chest," is a 3.8 x 2.8 x 1.4 cm purple plastic device, consistent with a port. The port displays a 24 cm in length portion of white tubing extending from one aspect. No soft tissue is present. No sections are submitted, gross only. D. Received fresh labeled "right breast implant," is a 13.5 x 12.0 x 5.5 cm aparicio, focally disrupted breast implant. No soft tissue is present. No sections are submitted, gross only. DL/04/18/2018 saudi/04/18/2018
== END 2018-04-17 20:05 | disposition home or self-care (01) ==
LOC: JASU-SURG 10:27
PROVIDERS: ATTEND Plastic Surgery
PROC: 0HBU0ZZ Excision of Left Breast, Open Approach (ICD-10-PCS; 2018-04-17)
PROC: 0HPT0JZ Removal of Synthetic Substitute from Right Breast, Open Approach (ICD-10-PCS; principal; 2018-04-17 12:00)
PROC: 0HRT0JZ Replacement of Right Breast with Synthetic Substitute, Open Approach (ICD-10-PCS; 2018-04-17 12:00)
DX: N65.1 Disproportion of reconstructed breast (principal); M95.4 Acquired deformity of chest and rib; Z85.3 Personal history of malignant neoplasm of breast
CPT/HCPCS: 88300-TC; 88304-TC; 88305-TC; 94760; J0131